=== PATIENT | female | born 1940 | race Caucasian/White ===

== ENCOUNTER → 2019-09-22 | Outpatient (CLI) | payer MEDICARE ==
[2019-09-22 10:09] LABS: ANION GAP 5 mmol/L (5-15); CALCIUM 9.7 mg/dL (8.5-10.1); CHLORIDE 107 mmol/L (98-107); CREATININE 1.36 mg/dL (0.55-1.02)
== END | disposition home or self-care (01) ==
LOC: STAR 09:13
PROVIDERS: ATTEND Anesthesiology
DX: Z01.812 Encounter for preprocedural laboratory examination (principal); Z01.818 Encounter for other preprocedural examination; Z01.89 Encounter for other specified special examinations; R79.1 Abnormal coagulation profile
CPT/HCPCS: 36415; 80048; 93005

== ENCOUNTER 2020-12-03 11:18 | Outpatient (CLI) | payer MEDICARE | END 2020-12-03 23:59 | disposition home or self-care (01) | LOC: STAR 11:18 | PROVIDERS: ATTEND Anesthesiology | DX: Z01.812 Encounter for preprocedural laboratory examination (principal); Z01.818 Encounter for other preprocedural examination; Z01.89 Encounter for other specified special examinations; R79.1 Abnormal coagulation profile ==